=== PATIENT | female | born 1960 | race American Indian/Alaskan Native ===

== ENCOUNTER 2018-03-08 07:30 | Inpatient (IN) ==
[2018-03-02 16:36] LABS: Basophils # (Auto) 0.1 K/mcL (0.0-0.3); Basophils % (Auto) 0.8 % (0.0-2.0); Eosinophils # (Auto) 0.2 K/mcL (0.0-0.7); Eosinophils % (Auto) 3.3 % (0.0-7.0); Granulocytes % (Auto) 49.5 % (38.0-78.0); Lymphocytes # (Auto) 2.4 K/mcL (1.5-4.8); Lymphocytes % (Auto) 36.3 % (15.5-49.0); Mean Cell Volume 93.3 fL (80.0-100.0); Mean Corpuscular HGB Conc 33.5 g/dL (31.0-36.0); Mean Corpuscular Hemoglobin 31.2 pg (26.0-34.0); Monocytes # (Auto) 0.7 K/mcL (0.1-0.9); Monocytes % (Auto) 10.1 % (1.0-12.0); Platelet Count 456 K/mcL (140-440); RBC 3.77 M/mcL (4.00-5.20); Red Cell Distribution Width 13.3 % (11.5-14.5)
[2018-03-02 16:45] LABS: Blood Urea Nitrogen 20 mg/dl (6-20)
[2018-03-02 17:25] LABS: Appearance,Urine CLEAR; Bacteria,Urine 0 /hpf (0); Bilirubin,Urine NEG (NEG); Color,Urine YELLOW; Glucose,Urine (UA) NEGATIVE (NEG); Leukocyte Esterase,Urine 25 /uL (NEG); Mucus,Urine FEW /hpf (0); Protein,Urine NEG (NEG); Specific Gravity,Urine 1.024 (1.000-1.035); Urine Blood NEG mg/dL (<0.03); Urine RBC 0 /hpf (0-1); Urine Squamous Epithelial Cell < 1 /hpf (0-4); Urine WBC 1 /hpf (0-4); Urobilinogen,Urine NEG (NEG)
[~2018-03-08 07:30] MED LIST: CELECOXIB 200 MG CAPSULE PO SCH; PREGABALIN 75 MG CAPSULE PO SCH; ceFAZolin 1 GM VIAL IV SCH; oxyCODONE 10 MG TAB.ER.12H PO SCH
[2018-03-08] MEDS ORDERED: MIDAZOLAM 2 MG/2 ML VIAL IV ONE (11:00)
[2018-03-08] MEDS ORDERED: SUCCINYLCHOLINE 20 MG/ML ML IV ONE (11:00)
[2018-03-08] MEDS ORDERED: ONDANSETRON 4 MG/2 ML VIAL IV ONE (11:00)
[2018-03-08] MEDS ORDERED: LIDOCAINE HCL/PF 100 MG/5 ML SYRINGE IV ONE (11:00)
[2018-03-08] MEDS ORDERED: DEXAMETHASONE 10 MG/ML VIAL IV ONE (11:00)
[2018-03-08] MEDS ORDERED: TRANEXAMIC ACID 1,000 MG/10 ML VIAL IV ONE ×2 (11:00→12:31)
[2018-03-08] MEDS ORDERED: HYDROmorphone 2 MG/ML VIAL IV ONE (11:00)
[2018-03-08] MEDS ORDERED: PROPOFOL 200 MG/20 ML VIAL IV ONE (11:00)
[2018-03-08] MEDS ORDERED: MEPERIDINE 25 MG/ML SYRINGE IV PRN (11:54)
[2018-03-08] MEDS ORDERED: NALOXONE HCL 0.4 MG/ML VIAL IV PRN (11:54)
[2018-03-08] MEDS ORDERED: KETOROLAC 15 MG/ML VIAL IV PRN (11:54)
[2018-03-08] MEDS ORDERED: LACTATED RINGERS 250 ML IV PRN (11:54)
[2018-03-08] MEDS ORDERED: PROMETHAZINE 25 MG/ML VIAL IV PRN (11:54)
[2018-03-08] MEDS ORDERED: BENZOCAINE/MENTHOL 1 LOZENGE PO PRN ×2 (11:54→12:31)
[2018-03-08] MEDS ORDERED: ONDANSETRON 4 MG/2 ML VIAL IV PRN ×2 (11:54→12:31)
[2018-03-08] MEDS ORDERED: diphenhydrAMINE 50 MG/ML VIAL IV PRN (11:54)
[2018-03-08] MEDS ORDERED: FLUMAZENIL 0.1 MG/ML ML IV PRN (11:54)
[2018-03-08] MEDS ORDERED: IPRATROPIUM/ALBUTEROL 3 ML AMPUL.NEB NEB PRN (11:54)
[2018-03-08] MEDS ORDERED: ACETAMINOPHEN 800 MG/80 ML BOTTLE IV ONE (11:54)
[2018-03-08] MEDS ORDERED: LACTATED RINGERS 1,000 ML IV SCH (12:00)
[2018-03-08] MEDS ORDERED: HYDROmorphone 2 MG/ML VIAL IV PRN ×2 (12:31→13:45)
[2018-03-08] MEDS ORDERED: FLEETS ADULT ENEMA PR PRN (12:31)
[2018-03-08] MEDS ORDERED: HYDROcodone/APAP 10/325MG TABLET PO PRN ×2 (12:31→15:48)
[2018-03-08] MEDS ORDERED: MAGNESIUM HYDROXIDE 30 ML ORAL.SUSP PO PRN (12:31)
[2018-03-08] MEDS ORDERED: BISACODYL 10 MG SUPP.RECT PR PRN (12:31)
[2018-03-08] MEDS ORDERED: POLYETHYLENE GLYCOL 3350 17 GM PACKET PO PRN (12:31)
--- NOTE | 2018-03-08 12:31 | Brief Operative Note ---
Date of procedure: 03/08/18 Pre-op diagnosis: Right shoulder DJD Post-op diagnosis: same Procedure: 1) Right total shoulder arthroplasty 2) Bicep tenodesis Grafts/Implants: Yes (Depuy CAP 40 x 15, 40 anchor peg glenoid) Anesthesia: GLMA Findings: severe arthritis Complications: none Surgeon: Bran Lujan Resident Intern: Calderon Hernandez Estimated blood loss (cc): 100 Specimens Removed/Pathology: none sent Condition: stable Disposition: PACU
[2018-03-08] MEDS ORDERED: BUPIVACAINE W/EPI 0.5% 50 ML VIAL IJ ONE (12:41)
[2018-03-08] MEDS: fentaNYL 100 MCG/2 ML VIAL IV PRN ×3 (13:08→13:21)
[2018-03-08] MEDS ORDERED: HYDROmorphone 2 MG/ML VIAL ONE (13:40)
--- NOTE | 2018-03-08 14:27 | XRay Report ---
CLINICAL INFORMATION: Shoulder prostheses COMPARISON: None. FINDINGS: Shoulder prostheses is anatomically aligned. No osseous abnormality. Soft tissue swelling seen as expected IMPRESSION: Negative Interpreted and Authenticated by: John Werner 03/08/18
--- NOTE | 2018-03-08 14:29 | Operative Note ---
DATE OF OPERATION: 03/08/2018 PREOPERATIVE DIAGNOSIS: Right shoulder severe [id number] osteoarthritis. POSTOPERATIVE DIAGNOSIS: Right shoulder severe dqzt-wl-[id number] osteoarthritis. PROCEDURES PERFORMED: 1. Right total shoulder arthroplasty placing a DePuy cap 40 x 15 humeral head component and a 40 anchor peg glenoid 2. Biceps tenodesis. SURGEON: Bran Lujan MD PHOSPHATIC FERTILIZER SUPERVISOR: Nicanor Hernandez PA-C. ANESTHESIA: General. DRAINS: None. SPECIMENS: None. COMPLICATIONS: None. BLOOD LOSS: 150 mL POSTOPERATIVE CONDITION: Stable. INDICATIONS FOR SURGERY: This is a 57-year-old female who has had longstanding progressive worsening shoulder pain. Radiographs showed aeyp-do-rgmp osteoarthritis. FINDINGS AT SURGERY: She had an intact rotator cuff with complete loss of cartilage. Post implantation showed satisfactory component position, stability showed 50% posterior subluxation. PROCEDURE IN DETAIL: The patient had been seen preoperatively. Informed consent had been obtained after discussion of risks, benefits of surgery. Risks including, but not limited to, bleeding, possibly requiring transfusion; infection, possibly requiring implant removal and prolonged IV antibiotics; injury to nerves, blood vessels other surrounding structures; anesthetic risks; incomplete or no resolution of symptoms; stiffness; pain, fracture dislocation, possibility of needing further revision surgery. She understood these risks and wished to proceed. Correct operative site was marked and then patient was taken to the operating room. General anesthesia induced. She was carefully positioned in the beach chair position and pressure points carefully padded. The right shoulder and upper extremity were then carefully prepped and draped in normal sterile fashion and a timeout was performed verifying patient name, operative site, and plan. Ioban was used to cover all skin surfaces and then a deltopectoral approach was made with a scalpel through skin and subcutaneous tissue. We then obtained hemostasis with Bovie cautery. Careful blunt dissection was taken down onto the cephalic vein and this was dissected laterally with the deltoid. Subdeltoid space was then developed with blunt finger dissection and then a lateral edge of the conjoint tendon identified. We unroofed the biceps tendon and amputated off the superior glenoid. A curved osteotome was used to perform a lesser tuberosity osteotomy and a traction stitch placed around. We then dislocated the humeral head out anteriorly. A curved osteotome was used to remove osteophytes and then we subluxed the humeral head posteriorly. We released labrum circumferentially as well as capsule and then a guide pin was placed. We reamed until we had contacted bone circumferentially. We had sized the head prior to preparing the glenoid and it sized to a 40. We then used a central peg reamer over the pin and then the three peripheral peg holes were drilled afterwards with the guide. We opened a 40 anchor peg glenoid. Cement was mixed. DBX was placed within the flutes. IrriSept was irrigated in the joint, after a minute pulse lavaged with saline. We then injected cement into the three peripheral holes and pressurized and then impacted the glenoid component. This was held in position absolutely still until the cement had fully hardened. We then redislocated the humeral head. A guide pin was placed centrally in the head and out the lateral cortex of the humerus and then a 40 x 15 reamer used to ream until we had a circumferential bone reaming. We then removed excess bone and then trialled which fit well. We then used the cruciate punch while the implant was opened. We irrigated IrriSept, after a minute pulse lavaged and then impacted the humeral component until it was fully seated. We then checked our stability and it subluxed 50% without difficulty. We then made drill holes in the bicipital groove and repaired the lesser tuberosity osteotomy with a #2 FiberWire [id number] stitch. We also closed the rotator interval with a #2 FiberWire [id number]. The traction stitch was used to tenodese the biceps and cut. We then used #1 Vicryl running for the deltopectoral interval. Final IrriSept irrigation was done, after a minute pulse lavage and then 2-0 Monocryl for subcutaneous and autumn for skin. Xeroform sterile dressings were applied. Arm was placed in an abductor immobilizer and patient was awakened, extubated, and transferred to recovery in stable condition. [email or web address] Job ID: [id number] Doc ID: [id number] Bran Lujan MD
[2018-03-08] MEDS: 0.9 % SODIUM CHLORIDE 1,000 ML IV SCH (14:30)
[2018-03-08] MEDS: 0.9 % SODIUM CHLORIDE 10 ML SYRINGE IV SCH ×2 (14:50→22:14)
[2018-03-08] MEDS: KETOROLAC 30 MG/ML VIAL IV PRN ×2 (15:29→22:12)
[2018-03-08] MEDS: oxyCODONE/APAP 10/325MG TABLET PO PRN ×2 (16:41→21:05)
[2018-03-08] MEDS: ceFAZolin 1 GM VIAL IV SCH (19:59)
[2018-03-08] MEDS: DOCUSATE SODIUM 100 MG CAPSULE PO SCH (20:06)
[2018-03-08] MEDS ORDERED: CYCLOBENZAPRINE 10 MG TABLET PO SCH (21:00)
[2018-03-08] MEDS ORDERED: SENNOSIDES 1 TABLET PO SCH (21:00)
[2018-03-09] MEDS: oxyCODONE/APAP 10/325MG TABLET PO PRN ×3 (00:44→10:05)
[2018-03-09] MEDS: 0.9 % SODIUM CHLORIDE 1,000 ML IV SCH ×2 (00:47→08:22)
[2018-03-09] MEDS: KETOROLAC 30 MG/ML VIAL IV PRN ×2 (04:08→10:04)
[2018-03-09] MEDS: ceFAZolin 1 GM VIAL IV SCH (04:08)
[2018-03-09] MEDS: 0.9 % SODIUM CHLORIDE 10 ML SYRINGE IV SCH (05:45)
--- NOTE | 2018-03-09 07:49 | Discharge Summary ---
Providers - Providers Patient information: Note initiated : 03/09/18 at 7:45 am Service Date, if different from initiated Date: [] Patient: Wanda Mtz 57 y/o F admitted on 03/08/18 for Right Total Shoulder Arthroplasty. Chief Complaint: [] Discharge date: 03/09/18 Hospitalization Hospital course: Pt was admitted for a total shoulder arthroplasty. Pt underwent the procedure on the day of admission. Pt spent one night on the floor prior to discharge. Pt will f/u at [facility] in 2 weeks. Will attend out-pt PT. Discharge diagnosis: R shoulder OA Exam - Exam Clean and dry: Yes Weight bearing status: as tolerated Ortho Discharge - TSA - Patient Instructions Diet: Regular Diet Activity: activity as tolerated Total Shoulder Protocol: Leave immobilizer in place except for bathing and ROM. Abduction pillow. Continue to wear sling until seen by physician. Codman Pendulum : These exercises use momentum produced by your body to move your shoulder joint. Bend your knees and shift your weight to your front leg, then back, allowing your arm to swing in the same directions. Using the same technique, alternately shift your weight between your right and left legs, allowing your arm to swing from side to side. These exercises are also performed in counterclockwise and clockwise circular motions. Typically these exercises are performed several times per day, for a set number repetitions or minutes, such as 20 times in a row or 5 minutes at a time. Dressing Care: May shower in 2 days - Follow Up Plan Disposition: Home, Self-Care Prognosis: Good Rehab Potential: Good Overall status at discharge: patient is progressing back to baseline - Orders For Discharge Prescriptions: oxyCODONE HCL [Oxycodone HCl] 5 mg PO Q4 #50 cap oxyCODONE/APAP [Percocet 10-325Mg] 1 - 2 tab PO Q4HP PRN #60 tab PRN Reason: Pain Level 3-6 Pending Studies Resuscitation Status Full Code Diet Regular Diet Start TueMar 08 1233 Cyclobenzaprine HCl (Flexeril) 10 mg PO HS [facility] Last Admin: 03/08/18 20:06 Dose: 10 mg Docusate Sodium (Colace) 100 mg PO BID [facility] Last Admin: 03/08/18 20:06 Dose: 100 mg Sodium Chloride (Sodium Chloride 0.9%) 1,000 mls @ 100 mls/hr IV .Q10H [facility] Last Infusion: 03/09/18 05:44 Dose: 0 mls/hr Admin: 03/09/18 00:47 Dose: 100 mls/hr Infusion: 03/09/18 00:30 Dose: 100 mls/hr Admin: 03/08/18 14:30 Dose: 100 mls/hr Ketorolac Tromethamine (Toradol) 30 mg IV Q6HP PRN PRN Reason: Pain Stop: 03/10/18 12:34 Last Admin: 03/09/18 04:08 Dose: 30 mg Admin: 03/08/18 22:12 Dose: 30 mg Admin: 03/08/18 15:29 Dose: 30 mg Morphine Sulfate (Morphine) 2 - 6 mg IV Q2HP PRN PRN Reason: PAIN LEVEL > 6 Last Admin: 03/09/18 01:22 Dose: 4 mg Admin: 03/08/18 23:14 Dose: 2 mg Admin: 03/08/18 20:05 Dose: 2 mg Oxycodone/Acetaminophen (Percocet 10-325mg) 1 - 2 tab PO Q4HP PRN PRN Reason: PAIN LEVEL 3-6 Last Admin: 03/09/18 05:44 Dose: 2 tab Admin: 03/09/18 00:44 Dose: 2 tab Admin: 03/08/18 21:05 Dose: 2 tab Admin: 03/08/18 16:41 Dose: 2 tab Senna (Senokot) 2 tab PO HS [facility] Last Admin: 03/08/18 20:06 Dose: 2 tab Sodium Chloride (Saline Flush) 10 ml IV Q8 [facility] Last Admin: 03/09/18 05:45 Dose: 10 ml Admin: 03/08/18 22:14 Dose: Not Given Admin: 03/08/18 14:50 Dose: 10 ml Shift Summary 03/09/18 05:21 Shift Summary by Karely Villafana Patient slept for few hours last night. Medicated for 7-10 shoulder pain with Percocet 2 tabs x 2, Mophine 2 mg x1, Morphine 4mg x1 and Toradol x2 with moderate effect pain 4-5/10. IV on left hand saline locked. Standby assisted to the bathroom. Voids adequately, last 800 mls this morning. Left shoulder dressing CDI, immobilizer in place. VSS. Initialized on 03/09/18 05:21 - END OF NOTE
[2018-03-09] MEDS: DOCUSATE SODIUM 100 MG CAPSULE PO SCH (08:22)
[2018-03-11] MEDS ORDERED: MELOXICAM 7.5 MG TABLET PO SCH (09:00)
== END 2018-03-09 13:05 | disposition home or self-care (01) | DRG 483 ==
LOC: MEDSUR 09:05
PROVIDERS: ADMIT Orthopaedic Surgery; ATTEND Orthopaedic Surgery